=== PATIENT | male | born 1950 | race Caucasian/White ===

== ENCOUNTER 2018-07-25 07:00 | Inpatient (IN) | payer OTHER ==
[~2018-07-25] VITALS: Ht 177.8 cm; Wt 95.3 kg
[~2018-07-25 07:00] MED LIST: AVALIDE 150/12.1 TAB PO; CEFADROXIL500 MG PO; PERCOCET 5/3251 TAB PO; XANAX1 MG PO; XARELTO10 MG PO
[2018-07-25] MEDS ORDERED: AVALIDE PO (08:04)
[2018-07-25] MEDS ORDERED: TAMS0.4C PO (08:04)
[2018-07-25] MEDS ORDERED: CATAFLAN PO (08:05)
[2018-07-25] MEDS ORDERED: TRAMADOL HCL50 MG PO (08:05)
[2018-07-25] MEDS ORDERED: XANAX1 MG PO (08:06)
[2018-07-25] MEDS ORDERED: TESTOS IM (08:07)
[2018-08-01] MEDS ORDERED: DOCUSATE SODIU100 MG PO (11:29)
[2018-08-01] MEDS ORDERED: PERCOCET 5-3251 EACH PO (11:30)
[2018-08-01] MEDS ORDERED: XANAX1 MG PO (11:30)
== END 2018-08-02 14:23 | DRG 454 ==
LOC: O/R 08-01 05:00 → PED 08-01 05:00 → O/R 08-01 07:00 → NICU 08-01 07:00 → PED 08-01 19:45
PROVIDERS: Orthopaedic Surgery Orthopaedic Surgery of the Spine
PROC: 0RG2071 Fusion of 2 or more Cervical Vertebral Joints with Autologous Tissue Substitute, Posterior Approach, Posterior Column, Open Approach (ICD-10-PCS; 2018-08-01)
PROC: 0RT30ZZ Resection of Cervical Vertebral Disc, Open Approach (ICD-10-PCS; 2018-08-01)
PROC: 07DS3ZZ Extraction of Vertebral Bone Marrow, Percutaneous Approach (ICD-10-PCS; 2018-08-01)
PROC: 0RG20A0 Fusion of 2 or more Cervical Vertebral Joints with Interbody Fusion Device, Anterior Approach, Anterior Column, Open Approach (ICD-10-PCS; principal; 2018-08-01 09:45)
DX: M50.01 Cervical disc disorder with myelopathy, high cervical region (principal); M47.12 Other spondylosis with myelopathy, cervical region; I10 Essential (primary) hypertension

== ENCOUNTER 2021-12-09 07:00 | Inpatient (IN) | payer OTHER ==
[~2021-12-09] VITALS: Ht 177.8 cm; Wt 108.0 kg
[~2021-12-09 07:00] MED LIST changes: +AVALIDE PO; +CATAFLAN PO; +DOCUSATE SODIU100 MG PO; +PERCOCET 5-3251 EACH PO; +TAMS0.4C PO; +TESTOS IM; +TRAMADOL HCL50 MG PO
[2021-12-09] MEDS ORDERED: ADULT LOW DOSE81 M1 PO (08:05)
[2021-12-13] MEDS ORDERED: GABAPENTIN400 MG (16:13)
[2021-12-13] MEDS ORDERED: IRBESARTAN-HCT1 EACH (16:13)
[2021-12-13] MEDS ORDERED: CLOTRIMAZOLE-BE15 G1 (16:14)
[2021-12-13] MEDS ORDERED: FLUOROMETHOLONE5 ML (16:14)
[2021-12-13] MEDS ORDERED: FLONASE16 GM (16:14)
[2021-12-13] MEDS ORDERED: SILDENAFIL CIT100 MG (16:14)
[2021-12-13] MEDS ORDERED: TESTOSTERO200 MG/1 M (16:14)
[2021-12-15] MEDS ORDERED: ELIQUIS2.5 MG PO (16:34)
[2021-12-15] MEDS ORDERED: DUI500 PO (16:34)
[2021-12-15] MEDS ORDERED: PERCOCET 5-3251 EACH PO (16:34)
== END 2021-12-15 18:39 | DRG 470 ==
LOC: SURH 12-13 05:10 → O/R 12-13 05:10 → SURH 12-13 07:00 → O/R 12-13 17:03 → SURG 12-13 17:07
PROVIDERS: ADMIT Orthopaedic Surgery; ATTEND Orthopaedic Surgery
PROC: 0MBM0ZZ Excision of Left Hip Bursa and Ligament, Open Approach (ICD-10-PCS; 2021-12-13)
PROC: 0SRB0JZ Replacement of Left Hip Joint with Synthetic Substitute, Open Approach (ICD-10-PCS; principal; 2021-12-13 11:00)
DX: M16.12 Unilateral primary osteoarthritis, left hip (principal); D62 Acute posthemorrhagic anemia; M89.752 Major osseous defect, left pelvic region and thigh; M70.62 Trochanteric bursitis, left hip; Z20.822 Contact with and (suspected) exposure to COVID-19; I10 Essential (primary) hypertension